=== PATIENT | female | born 1960 | race Caucasian/White ===

== ENCOUNTER 2017-06-17 05:04 | Inpatient (IN) | payer MEDICAID ==
[2017-06-17] MEDS: morphine 4 MG/ML VIAL IV (06:41)
[2017-06-17] MEDS: ONDANSETRON 4 MG INJ IV ×2 (06:41→09:16)
[2017-06-17 07:01] LABS: ADD MAN DIFF? NO
[2017-06-17 07:02] LABS: BASOPHILS % 0.5 % (0.0-2.0); EOSINOPHILS # 0.3 10^3/ul (0.0-0.5); EOSINOPHILS % 4.4 % (0.0-7.0); HEMATOCRIT 28.6 % (37.0-47.0); HEMOGLOBIN 9.5 g/dl (12.0-16.0); LYMPHOCYTES # 1.2 10^3/ul (0.8-2.9); LYMPHOCYTES % 15.9 % (15.0-51.0); MEAN CORPUSCULAR HEMOGLOBIN 28.4 pg (29.0-33.0); MEAN CORPUSCULAR HGB CONC 33.2 g/dl (32.0-37.0); MEAN CORPUSCULAR VOLUME 85.6 fl (82.0-101.0); MEAN PLATELET VOLUME 10.9 fl (7.4-10.4); MONOCYTE # 0.4 10^3/ul (0.3-0.9); MONOCYTES % 5.3 % (0.0-11.0); NEUTROPHIL # 5.4 10^3/ul (1.6-7.5); NEUTROPHILS % 73.5 % (39.0-77.0); PLATELET COUNT 228 10^3/UL (140-415); RED BLOOD COUNT 3.34 10^6/ul (4.20-5.40); RED CELL DISTRIBUTION WIDTH 12.5 % (11.5-14.5)
[2017-06-17 07:02] LABS: WHITE BLOOD COUNT 7.3 10^3/ul (4.8-10.8)
[2017-06-17 07:33] LABS: ALANINE AMINOTRANSFERASE 27 IU/L (13-69); ALBUMIN 4.7 g/dl (3.3-4.9); ALKALINE PHOSPHATASE 182 IU/L (42-121); AMYLASE 77 U/L (11-123); ANION GAP 24 (8-16); ASPARTATE AMINO TRANSFERASE 23 IU/L (15-46); BLOOD UREA NITROGEN 41 mg/dl (7-20); CALCIUM 9.3 mg/dl (8.4-10.2); CARBON DIOXIDE 26 mmol/L (21-31); CHLORIDE 90 mmol/L (97-110); CREATININE 6.42 mg/dl (0.44-1.00); GLUCOSE 301 mg/dl (70-220); INR 0.94; LIPASE 87 U/L (23-300); PROTIME 12.7 Sec (11.9-14.9); SODIUM 134 mmol/L (135-144); TOTAL PROTEIN 8.3 g/dl (6.1-8.1)
[2017-06-17 07:34] LABS: PARTIAL THROMBOPLASTIN TIME 36.3 Sec (25.0-35.0)
[2017-06-17 07:45] LABS: TROPONIN-I 0.017 ng/ml (0.00-0.12)
[2017-06-17 07:47] LABS: POTASSIUM 6.1 mmol/L (3.5-5.1)
[2017-06-17] MEDS: CA CHLORIDE 10% 10 ML SYRINGE IV (08:22)
[2017-06-17] MEDS: NA BICARBONATE 8.4% 50 ML SYG IV (08:22)
[2017-06-17] MEDS: NA POLYST SULFON 15 GM/60 ML BTL PO (08:23)
[2017-06-17] MEDS ORDERED: FUROSEMIDE 40 MG INJ (08:53)
[2017-06-17] MEDS ORDERED: NITROGLYCERIN 50 MG/D5W (PMX) 250 ML (08:54)
[2017-06-17] MEDS: FUROSEMIDE 40 MG INJ IV (09:01)
[2017-06-17] MEDS: INSULIN REGULAR, HUMAN 100 UNIT/1 ML 3ML VIAL IV (09:09)
[2017-06-17] MEDS: NITROGLYCERIN 50 MG/D5W (PMX) 250 ML IV (09:10)
[2017-06-17] MEDS: ALBUTEROL 0.5% (NEB) 2.5 MG/0.5 ML AMP INH (10:26)
[2017-06-17] MEDS ORDERED: ALBUTEROL HFA 8 GM INHALER INH (11:30)
[2017-06-17] MEDS ORDERED: ONDANSETRON 4 MG INJ IV (12:00)
[2017-06-17] MEDS ORDERED: DEXTROSE 50% 50 ML SYRINGE IV ×2 (12:00)
[2017-06-17] MEDS ORDERED: GLUCOSE GEL 15 GRAM TUBE BUCCAL (12:00)
[2017-06-17] MEDS ORDERED: GLUCOSE GEL 15 GRAM TUBE PO ×2 (12:00)
[2017-06-17] MEDS ORDERED: GLUCAGON 1 MG INJ IM (12:00)
[2017-06-17] MEDS ORDERED: INSULIN ASPART [NOVOLOG] 3 ML PEN SC (13:00)
[2017-06-17] MEDS: INSULIN ASPART [NOVOLOG] 3 ML PEN SC ×5 (13:54→20:30)
[2017-06-17 14:53] LABS: CHOL/HDL RATIO 5.1 RATIO; HDL CHOLESTEROL 45 mg/dl (37-92); LDL CHOLESTEROL,CALCULATED 144 mg/dl; TRIGLYCERIDES 216 mg/dl (0-149)
[2017-06-17 14:53] LABS: CHOLESTEROL 232 mg/dl (100-200)
[2017-06-17 15:02] LABS: HEMOGLOBIN A1C 9.7 % (0-5.9)
[2017-06-17] MEDS ORDERED: SOD CHLORIDE 0.9% 1,000 ML IV (15:26)
[2017-06-17 15:31] LABS: B-TYPE NATRIURETIC PEPTIDE 48200 PG/ML (0-125)
[2017-06-17 19:38] LABS: TROPONIN-I 0.016 ng/ml (0.00-0.12)
[2017-06-17] MEDS: INSULIN GLARGINE [LANtus] 3 ML PEN SC (20:35)
[2017-06-17] MEDS ORDERED: INSULIN GLARGINE [LANtus] 3 ML PEN SC (21:00)
[2017-06-18 01:41] LABS: TROPONIN-I 0.027 ng/ml (0.00-0.12)
[2017-06-18] MEDS: ACCU-CHEK XX (02:00)
[2017-06-18 07:04] LABS: TROPONIN-I 0.024 ng/ml (0.00-0.12)
[2017-06-18 07:07] LABS: ALANINE AMINOTRANSFERASE 27 IU/L (13-69); ALBUMIN 3.9 g/dl (3.3-4.9); ALKALINE PHOSPHATASE 103 IU/L (42-121); ANION GAP 19 (8-16); ASPARTATE AMINO TRANSFERASE 18 IU/L (15-46); BILIRUBIN,INDIRECT 0.1 mg/dl (0-1.1); BILIRUBIN,TOTAL 0.1 mg/dl (0.2-1.3); BLOOD UREA NITROGEN 27 mg/dl (7-20); CARBON DIOXIDE 30 mmol/L (21-31); CHLORIDE 93 mmol/L (97-110); CREATININE 4.48 mg/dl (0.44-1.00); GLUCOSE 113 mg/dl (70-220); POTASSIUM 5.5 mmol/L (3.5-5.1); SODIUM 136 mmol/L (135-144); TOTAL PROTEIN 6.5 g/dl (6.1-8.1)
[2017-06-18] MEDS: INSULIN ASPART [NOVOLOG] 3 ML PEN SC ×7 (07:35→21:00)
[2017-06-18 07:43] LABS: HEMOGLOBIN A1C 9.6 % (0-5.9)
[2017-06-18] MEDS: BENAZEPRIL 20 MG TAB PO (09:00)
[2017-06-18] MEDS: ASPIRIN (EC) 81 MG TAB PO (09:36)
[2017-06-18 17:32] LABS: HAAIG REFLEX REFLEX FILED
[2017-06-18 18:07] LABS: TROPONIN-I 0.024 ng/ml (0.00-0.12)
[2017-06-18 18:31] LABS: HEPATITIS B SURFACE ANTIGEN NEGATIVE (NEGATIVE)
[2017-06-18 18:49] LABS: HEPATITIS B CORE ANTIBODY NEGATIVE (NEGATIVE); HEPATITIS C VIRAL ANTIBODY NEGATIVE (NEGATIVE)
[2017-06-18] MEDS: CEFTRIAXONE 1 GM/50 ML (PMX) 50 ML IVPB (19:43)
[2017-06-18] MEDS: INSULIN GLARGINE [LANtus] 3 ML PEN SC (21:12)
[2017-06-19 01:27] LABS: TROPONIN-I 0.028 ng/ml (0.00-0.12)
[2017-06-19] MEDS: ACCU-CHEK XX (02:46)
[2017-06-19 06:55] LABS: ADD MAN DIFF? NO
[2017-06-19 06:57] LABS: WHITE BLOOD COUNT 4.7 10^3/ul (4.8-10.8)
[2017-06-19 06:57] LABS: BASOPHILS % 0.6 % (0.0-2.0); EOSINOPHILS # 0.3 10^3/ul (0.0-0.5); EOSINOPHILS % 7.2 % (0.0-7.0); HEMATOCRIT 26.7 % (37.0-47.0); HEMOGLOBIN 8.9 g/dl (12.0-16.0); LYMPHOCYTES # 1.4 10^3/ul (0.8-2.9); LYMPHOCYTES % 29.5 % (15.0-51.0); MEAN CORPUSCULAR HEMOGLOBIN 28.8 pg (29.0-33.0); MEAN CORPUSCULAR HGB CONC 33.3 g/dl (32.0-37.0); MEAN CORPUSCULAR VOLUME 86.4 fl (82.0-101.0); MEAN PLATELET VOLUME 10.6 fl (7.4-10.4); MONOCYTE # 0.4 10^3/ul (0.3-0.9); MONOCYTES % 8.9 % (0.0-11.0); NEUTROPHIL # 2.5 10^3/ul (1.6-7.5); NEUTROPHILS % 53.6 % (39.0-77.0); PLATELET COUNT 226 10^3/UL (140-415); RED BLOOD COUNT 3.09 10^6/ul (4.20-5.40); RED CELL DISTRIBUTION WIDTH 12.5 % (11.5-14.5)
[2017-06-19 07:20] LABS: ANION GAP 17 (8-16); BLOOD UREA NITROGEN 29 mg/dl (7-20); CALCIUM 9.5 mg/dl (8.4-10.2); CARBON DIOXIDE 32 mmol/L (21-31); CHLORIDE 93 mmol/L (97-110); CREATININE 4.35 mg/dl (0.44-1.00); GLUCOSE 113 mg/dl (70-220); POTASSIUM 4.5 mmol/L (3.5-5.1); SODIUM 137 mmol/L (135-144)
[2017-06-19] MEDS: INSULIN ASPART [NOVOLOG] 3 ML PEN SC ×6 (07:55→17:38)
[2017-06-19] MEDS: BENAZEPRIL 20 MG TAB PO (09:08)
[2017-06-19] MEDS: ASPIRIN (EC) 81 MG TAB PO (09:08)
== END 2017-06-19 18:06 | disposition home or self-care (01) | DRG 291 ==
LOC: TEL 06-19 02:17 → E/R 05:04 → ICU 10:18
PROC: 5A1D70Z Performance of Urinary Filtration, Intermittent, Less than 6 Hours Per Day (ICD-10-PCS; principal; 2017-06-17)
DX: I13.2 Hypertensive heart and chronic kidney disease with heart failure and with stage 5 chronic kidney disease, or end stage renal disease (principal); N18.6 End stage renal disease; J18.9 Pneumonia, unspecified organism; E11.22 Type 2 diabetes mellitus with diabetic chronic kidney disease; I50.33 Acute on chronic diastolic (congestive) heart failure; I16.1 Hypertensive emergency; K80.20 Calculus of gallbladder without cholecystitis without obstruction; E11.65 Type 2 diabetes mellitus with hyperglycemia; Z99.2 Dependence on renal dialysis; E87.5 Hyperkalemia; D50.9 Iron deficiency anemia, unspecified; E78.5 Hyperlipidemia, unspecified; R20.2 Paresthesia of skin
CPT/HCPCS: 36415; 71045; 76705; 80048; 80053; 80061; 82150; 82962; 83036; 83690; 83880; 84443; 84484; 85025; 85610; 85730; 86704; 86709; 86803; 87081; 87340; 90935; 93005; 93306; 94664; 96372; 96374; 96375; 96376; 99291-25

== ENCOUNTER 2017-06-21 20:33 | Emergency (ER) | payer MEDICAID ==
[2017-06-21] MEDS: NA PHOSPHATE/BIPHOS 133 ML ENEMA PR (23:55)
== END 2017-06-22 02:16 | disposition home or self-care (01) ==
LOC: E/R 06-22 02:16
DX: K59.03 Drug induced constipation (principal); I10 Essential (primary) hypertension; Z79.4 Long term (current) use of insulin; Z79.82 Long term (current) use of aspirin
CPT/HCPCS: 99283; Z7502

== ENCOUNTER 2017-11-19 12:22 | Emergency (ER) | payer SELFPAY, MEDICAID | END 2017-11-19 13:56 | disposition home or self-care (01) | LOC: E/R 12:22 | DX: M25.551 Pain in right hip (principal); E11.9 Type 2 diabetes mellitus without complications; I10 Essential (primary) hypertension; Z79.4 Long term (current) use of insulin; Z79.82 Long term (current) use of aspirin | CPT/HCPCS: 73510; 73550; 99284-25 ==

== ENCOUNTER 2018-05-30 12:10 | Emergency (ER) | payer MEDICAID ==
[2018-05-30 16:18] LABS: ADD MAN DIFF? NO
[2018-05-30 16:24] LABS: BASOPHILS % 0.8 % (0.0-2.0); EOSINOPHILS # 0.1 10^3/ul (0.0-0.5); EOSINOPHILS % 2.6 % (0.0-7.0); HEMATOCRIT 40.8 % (37.0-47.0); LYMPHOCYTES # 0.7 10^3/ul (0.8-2.9); LYMPHOCYTES % 18.5 % (15.0-51.0); MEAN CORPUSCULAR HEMOGLOBIN 27.1 pg (29.0-33.0); MEAN CORPUSCULAR HGB CONC 31.9 g/dl (32.0-37.0); MEAN PLATELET VOLUME 11.2 fl (7.4-10.4); MONOCYTE # 0.3 10^3/ul (0.3-0.9); MONOCYTES % 8.5 % (0.0-11.0); NEUTROPHIL # 2.6 10^3/ul (1.6-7.5); NEUTROPHILS % 69.3 % (39.0-77.0); PLATELET COUNT 188 10^3/UL (140-415); RED CELL DISTRIBUTION WIDTH 16.8 % (11.5-14.5)
[2018-05-30 16:24] LABS: WHITE BLOOD COUNT 3.8 10^3/ul (4.8-10.8)
[2018-05-30] MEDS: SOD CHLORIDE 0.9% 250 ML IV (16:34)
[2018-05-30 16:55] LABS: ALANINE AMINOTRANSFERASE 37 IU/L (13-69); ALBUMIN 4.6 g/dl (3.3-4.9); ALBUMIN/GLOBULIN RATIO 1.15; ALKALINE PHOSPHATASE 354 IU/L (42-121); ANION GAP 14 (5-13); ASPARTATE AMINO TRANSFERASE 54 IU/L (15-46); BILIRUBIN,INDIRECT 0.2 mg/dl (0-1.1); BILIRUBIN,TOTAL 0.2 mg/dl (0.2-1.3); BLOOD UREA NITROGEN 34 mg/dl (7-20); CALCIUM 9.8 mg/dl (8.4-10.2); CARBON DIOXIDE 30 mmol/L (21-31); CHLORIDE 93 mmol/L (97-110); CREATININE 3.83 mg/dl (0.44-1.00); Estimated GFR 12 mL/min (>60); GLUCOSE 141 mg/dl (70-220); POTASSIUM 4.3 mmol/L (3.5-5.1); SODIUM 137 mmol/L (135-144); TOTAL PROTEIN 8.6 g/dl (6.1-8.1)
[2018-05-30 17:06] LABS: TROPONIN-I 0.018 ng/ml (0.000-0.120)
== END 2018-05-30 18:00 | disposition home or self-care (01) ==
LOC: E/R 12:10
DX: E11.649 Type 2 diabetes mellitus with hypoglycemia without coma (principal); R53.1 Weakness; Z79.4 Long term (current) use of insulin; Z79.82 Long term (current) use of aspirin
CPT/HCPCS: 36415; 70450; 71045; 80053; 84484; 85025; 93005; 99285-25